=== PATIENT | male | born 1980 | race African-American/Black ===

== ENCOUNTER 2021-10-21 09:32 | Emergency (ER) | payer OTHER ==
[2021-10-21 09:45] VITALS: BP 129/78; PULSE 111; TEMP 98.5; BMI 20.7
[2021-10-21] MEDS ORDERED: IBUPROFEN 600 MG TABLET (FP) PO ONE (10:50)
== END 2021-10-21 11:50 | disposition home or self-care (01) ==
LOC: JERFT 09:32
DX: M25.571 Pain in right ankle and joints of right foot (principal)
CPT/HCPCS: 73590-TC-RT-FY; 73610-TC-RT-FY; 73630-TC-RT-FY; 99283-25